=== PATIENT | female | born 1965 | race Caucasian/White ===

== ENCOUNTER 2016-05-22 08:29 | Emergency (ER) | payer OTHER ==
[~2016-05-22 08:29] MED LIST: ATIVAN0.5 MG PO; BENICAR20 MG PO; BENICAR5 MG PO; COUMADIN1 MG PO; FERROUS SULFAT325 MG PO; GABAPENTIN300 MG PO; IBUPROFEN400 MG PO; IBUPROFEN800 MG PO; INSULIN PUMP SCCONT; INSULIN SYRG MIS 1ML; LEVEMIR100 UNIT/2 SC; LEXAPRO20 MG PO; Levaquin PO; METHOCARBAMOL500 MG PO; METOPROLOL TART25 MG PO; MOTRIN600 MG PO; NAPROSYN500 MG PO; NEURONTIN300 MG PO; NEURONTIN400 MG PO; NOVOLIN INJ 70/30 SC; NOVOLIN,HU100 UNITS/ SC; NOVOLIN,HU100 UNITS1 SC; OMEPRAZOLE40 M1 PO; OXYCODONE HCL5 MG PO; OXYCONTIN10 MG PO; PERCOCET 5/31 TABLET PO; POTASSIUM OTC; Protonix PO; SENNA-TIME S T1 EACH PO; TYLENOL REGULA325 MG PO; VALIUM5 MG PO; VITAMIN D1000 INTUN PO
[2016-05-22 08:34] VITALS: BP 148/92
[2016-05-22] MEDS ORDERED: PERCOCET 5/31 TABLET PO (09:28)
== END 2016-05-22 10:50 | disposition home or self-care (01) ==
LOC: EME 08:29
PROC: 2W3CX1Z Immobilization of Right Lower Arm using Splint (ICD-10-PCS; principal; 2016-05-22)
DX: S62.612A Displaced fracture of proximal phalanx of right middle finger, initial encounter for closed fracture (principal); X50.9XXA Other and unspecified overexertion or strenuous movements or postures, initial encounter; Y93.K1 Activity, walking an animal; E11.9 Type 2 diabetes mellitus without complications; I10 Essential (primary) hypertension; Z96.652 Presence of left artificial knee joint; Z72.0 Tobacco use
CPT/HCPCS: 73130; 99281; 99284; J3010

== ENCOUNTER 2016-06-29 03:12 | Emergency (ER) | payer OTHER ==
[~2016-06-29] VITALS: Ht 170.2 cm; Wt 90.1 kg
[2016-06-29 04:06] LABS: BASOPHIL COUNT 0.1 K/uL (0-0.1); EOSINOPHIL (%) 1.7 % (0-5); EOSINOPHIL COUNT 0.2 K/uL (0-0.3); HEMATOCRIT 47.6 % (36.0-46.0); IMMATURE GRANULOCYTE (%) 0.4 % (0.0-0.7); INSTRUMENT ABS NEUTROPHIL CT 7.9 K/uL; LYMPHOCYTE COUNT 1.8 K/uL (1.0-2.8); MCH 31.6 PG (29.0-34.0); MCHC 33.6 G/DL (30.0-36.0); MCV 93.9 FL (83-99); MEAN PLAT.VOLUME 11.6 uM^3 (9.5-12.4); MONOCYTE (%) 4.6 % (3-12); MONOCYTE COUNT 0.5 K/uL (0-0.8); NEUTROPHIL (%) 75.4 % (45-76); NEUTROPHIL COUNT 7.9 K/uL (1.8-6.4); PLATELET COUNT 292 K/uL (156-360); RBC DIS.WIDTH-CV 13.4 % (11.8-14.6); RBC DIS.WIDTH-SD 46.5 % (39-53); RED BLOOD COUNT 5.07 M/uL (3.80-5.20); WHITE BLOOD COUNT 10.4 K/uL (4.1-10.2)
[2016-06-29 04:12] LABS: ADD MIUA? NO; BILIRUBIN NEGATIVE; BLOOD NEGATIVE; COLOR STRAW ((YELLOW)); GLUCOSE (STRIP) >=500; KETONES 20; LEUKOCYTES NEGATIVE; NITRITE NEGATIVE; PROTEIN (STRIP) NEGATIVE; UCUL ADDED? NO; UROBILINOGEN 0.2 MG/DL (0.2-1.0)
[2016-06-29 04:16] LABS: CHLORIDE 99 mEq/L (99-109); POTASSIUM 5.1 mEq/L (3.7-5.4); SODIUM 133 mEq/L (136-147)
[2016-06-29 04:19] LABS: ANION GAP 16 MEQ/L (2-14); GLUCOSE 620 mg/dL (70-99)
[2016-06-29 04:22] LABS: GFR ESTIMATE (CALCULATED) 46 mL/min/; UREA NITROGEN (BUN) 25 mg/dL (9-23)
[2016-06-29 06:09] LABS: CHLORIDE 104 mEq/L (99-109); POTASSIUM 4.9 mEq/L (3.7-5.4); SODIUM 137 mEq/L (136-147)
[2016-06-29 06:12] LABS: ANION GAP 13 MEQ/L (2-14)
[2016-06-29 06:15] LABS: GFR ESTIMATE (CALCULATED) 50 mL/min/
[2016-06-29 06:16] LABS: UREA NITROGEN (BUN) 25 mg/dL (9-23)
[2016-06-29 06:22] LABS: GLUCOSE 499 mg/dL (70-99)
[2016-06-29] MEDS ORDERED: METOPROLOL SUCC50 MG PO (06:29)
[2016-06-29] MEDS ORDERED: LEVEMIR100 UNIT/2 SC (06:29)
[2016-06-29] MEDS ORDERED: GABAPENTIN600 MG PO (06:38)
[2016-06-29] MEDS ORDERED: GABAPENTIN300 MG PO (06:38)
[2016-06-29] MEDS ORDERED: MOBIC15 MG PO (06:39)
[2016-06-29 08:01] LABS: POINT-OF-CARE METER ID UU13113702
[2016-06-29 09:38] VITALS: BP 133/79
[2016-06-29 12:22] LABS: POINT-OF-CARE METER ID UU13113778
== END 2016-06-29 09:38 | disposition home or self-care (01) ==
LOC: EME 03:12
PROVIDERS: Emergency Medicine
DX: E11.65 Type 2 diabetes mellitus with hyperglycemia (principal); Z96.41 Presence of insulin pump (external) (internal); Z79.4 Long term (current) use of insulin; I10 Essential (primary) hypertension; R35.0 Frequency of micturition; R05 Cough; F17.200 Nicotine dependence, unspecified, uncomplicated
CPT/HCPCS: 80048; 80048 91; 81003; 82010; 82803; 82948; 85025; 99281; 99285; J2405; J7030